=== PATIENT | female | born 1950 | race Caucasian/White ===

== ENCOUNTER 2017-01-09 21:58 | Emergency (ER) | payer MEDICARE, OTHER ==
[~2017-01-09] VITALS: Ht 160 cm; Wt 68.0 kg
[2017-01-10] MEDS ORDERED: AMBIEN10 MG PO (03:08)
[2017-01-10] MEDS ORDERED: REQUIP0.25 MG PO (03:08)
[2017-01-10] MEDS ORDERED: CALCIUM500 MG PO (03:10)
[2017-01-10] MEDS ORDERED: CELEXA20 MG PO (03:10)
== END 2017-01-10 01:46 | disposition short-term general hospital (02) ==
LOC: ER 21:58
DX: S20.219A Contusion of unspecified front wall of thorax, initial encounter (principal); N28.9 Disorder of kidney and ureter, unspecified; G25.81 Restless legs syndrome; M81.0 Age-related osteoporosis without current pathological fracture; Z79.899 Other long term (current) drug therapy; W09.1XXA Fall from playground swing, initial encounter
CPT/HCPCS: Q9967